=== PATIENT | male | born 1950 | race Caucasian/White ===

== ENCOUNTER → 2020-04-23 10:18 | Outpatient (BNVA) | payer BC, SELFPAY | PROVIDERS: Visit Provider Nurse Practitioner Family | DX: R10.9 Unspecified abdominal pain (principal); R31.9 Hematuria, unspecified | CPT/HCPCS: 81000 ==

== ENCOUNTER → 2022-08-24 10:27 | Outpatient (BNVA) | payer BC, SELFPAY | PROVIDERS: PCP Nurse Practitioner Family; Visit Provider Nurse Practitioner Family | DX: K21.9 Gastro-esophageal reflux disease without esophagitis (principal) | CPT/HCPCS: 87338 ==

== ENCOUNTER → 2022-12-29 16:03 | Outpatient (BNVA) | payer BC, SELFPAY | PROVIDERS: PCP Nurse Practitioner Family; Visit Provider Nurse Practitioner Family | DX: R31.9 Hematuria, unspecified (principal) | CPT/HCPCS: 81000 ==

== ENCOUNTER 2023-01-07 13:44 | Outpatient (CLI) | payer BC, SELFPAY ==
--- NOTE | 2023-01-07 13:50 | MM_ITS ---
WS: [id number] BILATERAL 3D TOMOSYNTHESIS DIGITAL DIAGNOSTIC MAMMOGRAPHY WITH CAD CLINICAL INFORMATION: RT BREAST LUMP HISTORY: Palpable lump RIGHT breast TECHNIQUE: Bilateral CC, MLO, and ML views. FINDINGS: Scattered fibroglandular densities bilaterally. Palpable marker RIGHT breast near the areola. Normal underlying parenchymal tissue. Slightly increased parenchymal deep to the areola. Ultrasound is pendi ng. Incidental tiny punctate calcifications LEFT breast. ULTRASOUND BREAST RIGHT TECHNIQUE: Ultrasound right breast focused area of concern. CLINICAL INFORMATION: RT BREAST LUMP FINDINGS: Ultrasound RIGHT breast in the area of concern near the areola 11:00 position 1 cm from the nipple. I n the area of palpable nodule, there is an isoechoic ovoid nodule measuring 1.2 x 0.4 x 1.1 cm. This likely represents incidental benign lipoma. Recommend 6 month follow-up with ultrasound to confirm st ability considering palpable. MM/[place] [id number] IMPRESSION: BI-RADS: 3-Probably Benign FOLLOW UP: 6 Month Follow-up Recommend 6 month follow-up RIGHT breast ultrasound to confirm stability of the above-described nodule
--- NOTE | 2023-01-07 14:45 | US_ITS ---
WS: [id number] BILATERAL 3D TOMOSYNTHESIS DIGITAL DIAGNOSTIC MAMMOGRAPHY WITH CAD CLINICAL INFORMATION: RT BREAST LUMP HISTORY: Palpable lump RIGHT breast TECHNIQUE: Bilateral CC, MLO, and ML views. FINDINGS: Scattered fibroglandular densities bilaterally. Palpable marker RIGHT breast near the areola. Normal underlying parenchymal tissue. Slightly increased parenchymal deep to the areola. Ultrasound is pendi ng. Incidental tiny punctate calcifications LEFT breast. ULTRASOUND BREAST RIGHT TECHNIQUE: Ultrasound right breast focused area of concern. CLINICAL INFORMATION: RT BREAST LUMP FINDINGS: Ultrasound RIGHT breast in the area of concern near the areola 11:00 position 1 cm from the nipple. I n the area of palpable nodule, there is an isoechoic ovoid nodule measuring 1.2 x 0.4 x 1.1 cm. This likely represents incidental benign lipoma. Recommend 6 month follow-up with ultrasound to confirm st ability considering palpable. US/US breast RT limited* [id number] IMPRESSION: BI-RADS: 3-Probably Benign FOLLOW UP: 6 Month Follow-up Recommend 6 month follow-up RIGHT breast ultrasound to confirm stability of the above-described nodule
--- NOTE | 2023-01-07 15:15 | US_ITS ---
WS: [id number] RENAL ULTRASOUND HISTORY: R31.9 - Hematuria, unspecified COMPARISON: None available. TECHNIQUE: 2-D and color Doppler imaging of the kidney submitted. Right kidney: 11.1 cm x 6.2 cm x 4.7 cm. Normal kidney. No hydronephrosis. Exophytic simple cyst from the lower pole measures 5.5 x 5.3 x 5.5 cm. No solid mass. Left kidney: 10.8 cm x 3.9 cm x 5.3 cm. Normal echogenicity with no hydronephrosis or mass. Aorta: Normal. Urinary Bladder: Mild distention of the urinary bladder. Prostate gland is mildly heterogeneous measu ring 4.6 x 3.8 cm extending over a length of 5.0 cm. US/US renal BI* [id number] IMPRESSION: 1. No hydronephrosis or solid renal mass. 2. RIGHT renal cyst, inferior pole.
[2023-01-07 16:43] LABS: Alanine Aminotransferase 30 U/L (0-41); Albumin Level 4.5 g/dL (3.5-5.2); Alkaline Phosphatase 42 U/L (40-130); Anion Gap 15.9 (5-19); Aspartate Amino Transferase 30 U/L (0-40); Blood Urea Nitrogen 14 mg/dL (8-23); Calcium 9.1 mg/dL (8.5-10.5); Carbon Dioxide 26 mmol/L (22-29); Chloride 99 mmol/L (98-107); Chol HDL Ratio 4.94 mg/dL (1.0-5.00); Cholesterol 178 mg/dL (0-200); Globulin 2.8 g/dL (1.3-4.6); Glomerular Filtration Rate 50.1 mL/min (90-130); Glucose 98 mg/dL (65-115); HDL Cholesterol 36 mg/dL (60-100); LDL Cholesterol Calculated 117 mg/dL (50-129); LDL HDL Ratio 3.25 RATIO (0.00-3.22); Osmolality Calculated 282 mOsm/kg (285-295); Potassium 4.9 mmol/L (3.5-5.1); Sodium 136 mmol/L (136-145); Total Bilirubin 0.3 mg/dL (0.15-1.2); Total Protein 7.3 g/dL (6.6-8.7); Triglycerides 123 mg/dL (0-150)
== END 2023-01-07 13:45 | disposition home or self-care (01) ==
PROVIDERS: PCP Nurse Practitioner Family; Visit Provider Nurse Practitioner Family
DX: E78.5 Hyperlipidemia, unspecified (principal); E87.1 Hypo-osmolality and hyponatremia; R31.9 Hematuria, unspecified; N28.1 Cyst of kidney, acquired; R92.1 Mammographic calcification found on diagnostic imaging of breast; N63.11 Unspecified lump in the right breast, upper outer quadrant
CPT/HCPCS: 36415; 76642; 76770; 77062; 80053; 80061; G0279

== ENCOUNTER 2023-08-09 08:17 | Outpatient (CLI) | payer BC, SELFPAY ==
--- NOTE | 2023-08-09 08:30 | US_ITS ---
WS: [id number] ULTRASOUND BREAST RIGHT TECHNIQUE: Ultrasound right breast focused area of concern. CLINICAL INFORMATION: N63.10 - Unspecified lump in the right breast, unspecifie... COMPARISON: 01/07/2023 FINDINGS: Ultrasound RIGHT breast 11 o'clock position 1 cm from the nipple in the area of palpable abnormality. Well-circumscribed ovoid nodule measuring 12 x 5 mm is unchanged in appearance since the prior exami nation and unchanged in size. This is most compatible with benign breast tissue likely small lipoma. No other suspicious abnormalities. Stability is reassuring. No additional follow-up is required. If c hange in symptoms or increasing palpable abnormality recommend return for additional evaluation. IMPRESSION: BI-RADS 2 benign US/US breast RT limited* [id number] Follow-up: See report
== END 2023-08-09 08:18 | disposition home or self-care (01) ==
LOC: RAD 08:18
PROVIDERS: PCP Nurse Practitioner Family; Visit Provider Nurse Practitioner Family
DX: N63.11 Unspecified lump in the right breast, upper outer quadrant (principal)
CPT/HCPCS: 76642